=== PATIENT | male | born 1960 | race Caucasian/White ===

== ENCOUNTER → 2016-04-02 14:07 | Outpatient (CLI) | payer BC, MEDICAID ==
[2014-03-22 13:05] VITALS: BMI 32.2
[~2016-04-02 14:07] MED LIST: BAYER CHEWABLE81 MG PO; DULERA 100 MCG8.8 GM INH; RESTORIL15 MG PO; SPIRIVA18 MCG INH
== END | disposition home or self-care (01) ==
LOC: D.RAD 14:00
DX: J45.909 Unspecified asthma, uncomplicated (principal)